=== PATIENT | male | born 1950 | race Caucasian/White ===

== ENCOUNTER 2024-06-14 18:22 | Emergency (ER) | payer MEDICARE, OTHER, SELFPAY ==
[2024-06-14 18:30] VITALS: BP 212/108
[2024-06-14 18:39] VITALS: BP 164/98
[2024-06-14 19:31] VITALS: BP 184/116
--- NOTE | 2024-06-14 19:43 | ED.GENMED ---
History of Present Illness
General
Chief Complaint: Blood Pressure Problem
Source: patient and family (daughter)
Exam Limitations: none
Time Seen by Provider: 06/14/24 19:11
History of Present Illness
History of Present Illness:
This is a 73 year old male that comes in with c/o his BP going up and down. States that this all started when he was lightheaded when he went up the steps. Daughter states that 2 days ago he went up the steps and he was lightheaded and passed out.
States that he had grabbed for the bookcase and it fell on him. Patient states that he was awake before he hit the floor. States that his BP has been uncontrolled. States that at one time it was 90/60 with HR of 49 and then a couple days later it
was 200/1039 with HR of 63. States that he has stopped all of his BP medication. States that he has been SOB and had diarrhea. Denies any fever, chills, chest pain, abd pain, nausea, vomiting, headache, dizziness, urinary burning.
Past History
Past History
ED Past Medical History: Asthma, GERD, HTN, Hypercholesterolemia and Other (Benign prostatic hypertrophy , Renal calculus, Parkinson's, Allergic rhinitis )
ED Past Surgical History: Urological (Lithotripsy) and Other (cataracts. right and left lens implants. Eye lid tuck, Hernia surgery)
Social History
Tobacco: Former smoker (Patient will very intermittently smoke a cigar at a celebratory function)
Alcohol: Occasional
Drug: None
Personal:
Living: with family
Employment: Retired
Review of Systems
Review of Systems
All Other Systems: ROS reviewed and negative except as documented in HPI and ROS
Constitutional: Reports no symptoms; Denies fever or chills
EENT: Reports no symptoms
Respiratory: Reports trouble breathing; Denies cough
Cardiac: Reports no symptoms; Denies chest pain
ABD/GI: Reports diarrhea; Denies abdominal pain, nausea or vomiting
: Reports no symptoms; Denies dysuria, frequency or urgency
Musculoskeletal: Reports no symptoms
Skin: Reports no symptoms
Neurological: Reports no symptoms; Denies dizzy or headache
Psychiatric: Reports no symptoms
Phy Exam
General Physical Exam
General Presentation: no apparent distress
General age: appears stated age
General Skin: warm and dry
General Habitus: elderly
General Mental: alert
General Hydration: appears well hydrated
ENT Exam
ENT Exam: TM's normal, pharynx normal and neck supple
Eye Exam
Eye Exam: EOMI
Cardiovascular Exam
Cardiovascular Exam: regular rate/rhythm, no edema and normal peripheral pulses
Pulmonary Exam
Pulmonary Exam: lungs clear, no respiratory distress, no rales, chest non tender, no crackles, no rhonchi, no wheezing and no cough
Gastrointestinal Exam
Gastrointestinal Exam: normal bowel sounds, non tender, soft, no organomegaly, no pulsatile mass and non distended
Musculoskeletal Exam
Musculoskeletal Exam: full ROM and no edema
Skin Exam
Skin Exam: normal color, warm/dry, no rash and no petechia
Psychiatric Exam
Psychiatric Exam: normal mood/affect
Course
Orders/Labs/Results
Orders:
Orders
06/14/24 18:23
Electrocardiogram (*1) Urgent
Reason for Study: Syncope
EKG- Treatment ONCE
06/14/24 19:48
Amlodipine [Norvasc] 5 mg PO NOW STA
CR Chest - 2 Views Urgent
Comment:
Reason For Exam: SOB
06/14/24 19:56
Complete Blood Count/With Diff Urgent
Comprehensive Metabolic Panel Urgent
Troponin I Urgent
Abnormal Lab Results
06/14/24
19:56
MCH 31.9 H pg
(27.0-31.0)
Monocytes % 10.2 H %
(1.7-9.3)
06/14/24 19:56
06/14/24 19:56
Vital Signs
Initial and Last Documented VS:
Initial Vital Signs
Temp Pulse Resp BP Pulse Ox
97.8 F 78 18 212/108 98
06/14/24 18:30 06/14/24 18:30 06/14/24 18:30 06/14/24 18:30 06/14/24 18:30
Last Documented Vital Signs
Temp Pulse Resp BP Pulse Ox
97.8 F 60 16 176/92 98
06/14/24 18:30 06/14/24 20:23 06/14/24 20:23 06/14/24 21:08 06/14/24 18:30
MDM/Problems Addressed
Differential Diagnosis Includes:
Hypertension,
MDM/Problems Addressed:
This us a 74 year old male that comes in with c/o his BP going up and down. Daughter states that he passed out the other day after going up the steps and he grabbed a bookcase and this fell on top of him. Patient states that he had come around
before he even hit the floor. States that at one time his BP was 90/60 with HR 49. Then a couple days later it was 200/139 with HR 63.
will check labs, chest x-ray, and check BP manually.
Back into see patient and daughter. Explained that his blood work is normal along with the chest-x-ray. Feel that patient needs to be on Medication for his BP. Will place back on Amlodipine 5mg daily. Patient to follow up with the Wind Turbine Technician for
further evaluation and treatment. Will discharge home.
Chronic conditions affecting care: HTN
Acute Exacerbation and/or Progression of Chronic Illness: HTN
*Radiology
Radiology exam reviewed: radiology read reviewed (Chest-Mild scarring in the right lower and middle lobes which appears unchanged. No radiographic evidence for pneumonia, pleural effusion or acute pulmonary edema)
*Pulse Oximetry
Patient hypoxic: no
*EKG
Interpreted by ED Provider?: Yes
Heart Rate: 65
Rate: normal
Rhythm: sinus
Proctor: normal axis
Interval: normal interval
QRS Pattern: normal QRS
Ischemia: no ischemia
*Pipeline Technician Interpretation
Rate: normal
Heart Rate: 79
Rhythm: sinus
*Critical Care Note
Total Time (30-74mins, 75-104mins- exclusive of procedures): Not Applicable
ED Attending Note
-
Portions of this chart may have been created with voice recognition software.� Occasional wrong word or��sound alike� substitutions may have occurred due to the inherent limitations of voice recognition software.
Discharge Plan
Departure
Patient Disposition: Home (Routine Discharge)
Date of Disposition: 06/14/24
Time of Disposition: 21:42
Patient with high blood pressure during this ER visit?: Yes
Condition: Good
Covid-19: Not Applicable
Discharge Problem:
Hypertension
Instructions: High Blood Pressure (DC), BLOOD PRESSURE
Prescriptions:
New
amlodipine 5 mg tablet
5 mg PO DAILY Qty: 30 0RF
No Action
finasteride [Propecia] 1 MG tablet
1 mg PO DAILY
docosahexaenoic acid-epa 1 CAP capsule
1 cap PO DAILY
GLUCOSAMINE HCL/CHONDRO MACEDO A
1 tab PO DAILY
Multivitamin
1 tab PO DAILY
Timolol
1 drp LEFT EYE DAILY
polyethylene glycol 3350 17 GRAMS powder in packet
17 grams PO DAILY Qty: 10 0RF
Rx Instructions:
use if no BM>24h; OTC, no Rx given/needed
tramadol [Ultram] 50 MG tablet
50 mg PO Q6HPRN PRN (Reason: moderate pain) Qty: 20 0RF
Rx Instructions:
can increase to 2 tabs every 6h for severe pain
acetaminophen [Tylenol Extra Strength] 500 MG tablet
1,000 mg PO Q6HPRN PRN (Reason: mild pain) Qty: 10 0RF
Rx Instructions:
OTC, no Rx given/needed
Referrals:
Carlos Marie MD [Family Provider] -
Beka Ayers MD [Active] - Follow up in 2-3 days
Activity Restrictions/Additional Instructions:
As discussed, your blood work is all normal. Your chest x-ray is negative for any acute disease process. You do need to be on medication for your blood pressure. You have had a prescription for the Amlodipine sent to your pharmacy. Please take this
daily. Follow up with the Wind Turbine Technician for further evaluation and make them aware of the syncope and Shortness of breath. Please increase your water intake to 8-8oz glasses daily. PLEASE TAKE YOUR BLOOD PRESSURE CUFF WITH YOU TO THE SOFTWARE CONFIGURATION ENGINEER
OFFICE SO THEY CANE COMPARE READINGS YOU MAY NEED TO GET YOURS RECALIBRATED. IF YOU HAVE ANY OTHER CONCERNS PLEASE RETURN TO THE EMERGENCY ROOM
Interventions
Interventions:
*Risk Screen - Suicide Last Done: 06/14/24 18:30
*General Assessment Last Done: 06/14/24 18:30
*Neglect/Abuse Screening Last Done: 06/14/24 18:30
ED- Fall Risk Assessment Last Done: 06/14/24 19:08
*ED COVID-19 Vaccine History Last Done: 06/14/24 18:30
ED- Cardiac Assessment Last Done: 06/14/24 19:08
ED- Neurological Assessment Last Done: 06/14/24 19:08
ED- Pulmonary Assessment Last Done: 06/14/24 19:08
Discharge Date and Time
Print Language: MONGOLIAN
[2024-06-14 20:04] LABS: % Basophils 0.6 % (0-2); % Eosinophils 2.4 % (0-6); % Immature Granulocytes 0.2 % (0-0.5); % Lymphocytes 24.7 % (20.5-51.1); % Monocytes 10.2 % (1.7-9.3); % Neutrophils 61.9 % (42.2-75.2); Absolute Eosinophils 0.2 10^3/uL (0-0.7); Absolute Lymphocytes 1.5 10^3/uL (1.2-3.4); Absolute Monocytes 0.6 10^3/uL (0.1-0.6); Absolute Neutrophils 3.8 10^3/uL (1.4-6.5); Hematocrit 43.8 % (39.0-52.0); Hemoglobin 15.2 g/dL (13.0-18.0); Mean Corp Hgb Conc. 34.7 g/dL (33.0-37.0); Mean Corpuscular Hgb 31.9 pg (27.0-31.0); Mean Corpuscular Volume 91.8 fL (80.0-94.0); Mean Platelet Volume 8.7 fL (7.4-10.4); Nucleated Red Blood Cells % 0 % (-); Platelet Count 203 10^3/uL (130-400); Red Blood Cell Count 4.77 10^6/uL (4.70-6.10); Red Cell Dist. Width 11.9 % (11.5-14.5); White Blood Cell Count 6.2 10^3/uL (4.8-10.8)
[2024-06-14] MEDS: NORVASC 5 MG PO (20:08)
[2024-06-14 20:12] VITALS: BP 163/95
[2024-06-14 20:18] LABS: ALT (SGPT) < 10 U/L (0-50); AST (SGOT) 21 U/L (17-59); Albumin 4.4 g/dl (3.5-5.0); Alkaline Phosphatase 41 U/L (38-126); Blood Urea Nitrogen 20 mg/dl (9-20); Calcium 9.4 mg/dl (8.4-10.2); Carbon Dioxide 27 mmol/L (22-30); Chloride 104 mmol/L (98-107); Glucose 99 mg/dl (70-99); Potassium 4.5 mmol/L (3.5-5.1); Sodium 142 mmol/L (135-145); Total Bilirubin 0.6 mg/dl (0.2-1.3); Total Protein 7.1 g/dl (6.3-8.2); eGFR > 60.00
[2024-06-14 20:29] LABS: Troponin I < 0.012 ng/ml
[2024-06-14 21:08] VITALS: BP 176/92
== END 2024-06-14 21:54 | disposition home or self-care (01) ==
LOC: EMR 18:22
PROVIDERS: Clinical Nurse Specialist Family Health; EMERGENCY PHYSICIAN Emergency Medicine; FAMILY PHYSICIAN Family Medicine
DX: R55 Syncope and collapse (principal); I10 Essential (primary) hypertension; R19.7 Diarrhea, unspecified; W20.8XXA Other cause of strike by thrown, projected or falling object, initial encounter; E78.00 Pure hypercholesterolemia, unspecified; G20.A1 Parkinson's disease without dyskinesia, without mention of fluctuations; J45.909 Unspecified asthma, uncomplicated; K21.9 Gastro-esophageal reflux disease without esophagitis; N40.0 Benign prostatic hyperplasia without lower urinary tract symptoms; Z87.442 Personal history of urinary calculi; Z87.891 Personal history of nicotine dependence; Z91.048 Other nonmedicinal substance allergy status
CPT/HCPCS: 99283; 71046; 80053; 84484; 85025; 93005

== ENCOUNTER → 2024-06-18 09:23 | Outpatient (REF) | payer MEDICARE, OTHER, SELFPAY | LOC: RCS 09:23 | PROVIDERS: ATTENDING PHYSICIAN Nurse Practitioner; FAMILY PHYSICIAN Family Medicine | DX: R42 Dizziness and giddiness (principal) | CPT/HCPCS: 93225; 93226 ==

== ENCOUNTER 2024-06-24 22:30 | Inpatient (IN) | payer MEDICARE, OTHER, SELFPAY ==
[2024-06-24] VITALS (17 sets, daily range): BP systolic 115–196; BP diastolic 59–176; BMI 27.8
--- NOTE | 2024-06-24 20:03 | ED.GENMED ---
History of Present Illness
General
Chief Complaint: CVA/TIA Symptoms
Source: patient and family
Exam Limitations: clinical condition
Time Seen by Provider: 06/24/24 20:00
Nursing documentation reviewed up to this point in time: agreed with
History of Present Illness
History of Present Illness:
74-year-old male presents emergency department after being found by his in vomit facedown and unresponsive. EMS found him in vomit and lying facedown. He was not responsive but just kept saying no to all questions.
Past History
Past History
ED Past Medical History: Asthma, GERD, HTN, Hypercholesterolemia and Other (Benign prostatic hypertrophy , Renal calculus, Parkinson's, Allergic rhinitis )
ED Past Surgical History: Urological (Lithotripsy) and Other (cataracts. right and left lens implants. Eye lid tuck, Hernia surgery)
Social History
Tobacco: Former smoker (Patient will very intermittently smoke a cigar at a celebratory function)
Alcohol: Occasional
Drug: None
Personal:
Living: with family
Employment: Retired
Review of Systems
Review of Systems
Allergies reviewed?: Yes
Phy Exam
Physical Exam
Physical Exam:
Physical Exam
General: Confused, hypertensive
Neck: supple. no meningeal signs. normal posterior pharynx
Heart: s1/s2 regular rate and rhythm, no murmur. equal radial
pulses.
HEENT: Pupils equal round reactive to light, EOMI
Lungs: no acute respiratory distress. clear bilaterally
Abdomen: normal bowel sounds. not tender. no CVAT
Neuro: alert and oriented to person. Difficulty moving right arm, moving all other extremities
Skin: no rash
Psychiatric: well kept. interactive and cooperative
Extremities: no edema. no calf tenderness. negative homans. good distal pulses
Course
Orders/Labs/Results
Orders:
Orders
06/24/24 20:00
CT HEAD STROKE ALERT W/o Cont Urgent
Comment:
Reason For Exam: altered mental status, right arm weakness
CT HEAD/NECK ANG STROKE ALERT Urgent
Comment:
Reason For Exam: altered mental status, right arm weakness
Bedside Glucose- Treatment ONCE
Cardiac Monitoring- Treatment ONCE
IV Insert/Care/Rem.- Treatment PRN
Pulse Ox/cont/shift [RESP] Stat
Quantity: 1
06/24/24 20:01
Electrocardiogram (*1) Stat
Reason for Study: Other
Other Reason for Exam: neuro symptoms
EKG- Treatment ONCE
06/24/24 20:09
Complete Blood Count/With Diff Urgent
Comprehensive Metabolic Panel Urgent
PTT Urgent
Prothrombin Time Urgent
Troponin I Urgent
06/24/24 20:23
CT Chest Pe Study Urgent
Comment:
Reason For Exam: bilateral pe seen on cta head neck, altered
06/24/24 20:55
Heparin 8,100 units IV NOW STA
Pharmacy Request to Place See Dose Instructions PO NOW STA
Discontinue all Active Warfarin orders?: Yes
Nursing to Place Non Medication Order As Directed
Physician Order: PTT 6 hours after initial start of Heparin infusion
06/24/24 21:00
Heparin INFUSION titrate rate - CONTINUOUS Heparin 48983 Units/250 ml 25,000 units in 250 ml IV PER PROTOCOL
Weight to be used for heparin protocol in kilograms (kg):: 100.9
Protocol:: DVT/PE
PTT Goal Range to be used:: PTT 73 to 111 seconds
Order type:: Initial
INITIAL Infusion Dose (UNITS/KG/hr) & then follow protocol:: 18 units/kg/hr
Infusion Dose in UNITS/hr & then follow protocol (UNITS/hr):: 1,800
INFUSION RATE in mL/hr & then follow protocol (mL/hr):: 18
For DVT/PE algorithm, re-bolus for low PTT?: Yes
PTT less than or equal to 64 seconds:: Re-bolus 80 units/kg (max 10,000units). Increase by 400 units/hr
(+ 4mL/hr)
PTT 64.1 to 72.9 seconds:: Re-bolus 40 units/kg (max 5,000 units). Increase by 200 units/hr
(+ 2mL/hr)
PTT 73 to 111 seconds:: Target Range. No change in rate.
PTT 111.1 to 130.9 seconds:: Decrease rate by 200 units/hr (- 2 mL/hr)
PTT 131 to 199.9 seconds:: HOLD for 1 hr. Then decrease by 300 units/hr (- 3mL/hr)
PTT greater than or equal to 200 seconds:: HOLD for 2 hrs & Notify Provider. Then decrease by 400 units/hr
(- 4mL/hr)
Lab follow-up:: Each change, PTT q6h until 2 consecutive are therapeutic. Then
PTT daily.
Pharmacy Request to Place See Dose Instructions IV DIRECTED
Abnormal Lab Results
06/24/24
20:09
MCH 31.7 H pg
(27.0-31.0)
Absolute Monos (auto) 0.7 H 10^3/uL
(0.1-0.6)
Glucose 207 H mg/dl
(70-99)
06/24/24 20:09
06/24/24 20:09
Vital Signs
Initial and Last Documented VS:
Initial Vital Signs
Pulse Resp
111 19
06/24/24 19:59 06/24/24 19:59
Last Documented Vital Signs
Pulse Resp BP Pulse Ox
118 24 178/108 89
06/24/24 20:45 06/24/24 20:45 06/24/24 20:45 06/24/24 20:01
MDM/Problems Addressed
Differential Diagnosis Includes:
CVA, PE
MDM/Problems Addressed:
74-year-old male with altered mental status, bilateral PE and saddle embolus. No acute findings on CT angiography head and neck. Patient moving all extremities. Doubt CVA. Suspect symptoms related to PE.
Chronic conditions affecting care: HTN
Acute Exacerbation and/or Progression of Chronic Illness: HTN
*Radiology
Radiology exam reviewed: radiology read reviewed (CT head no acute findings, CTA head and neck no acute findings, CT angiography chest shows saddle embolus, bilateral pulmonary embolism)
*Pulse Oximetry
Patient hypoxic: no
*EKG
Interpreted by ED Provider?: Yes
EKG Intrepretation Date: 06/24/24
EKG Intrepretation Time: 20:44
Interpretation: abnormal
Comparison EKG: changes noted
Heart Rate: 119
Rate: tachycardiac
Rhythm: sinus tachycardia
[place]enn: normal axis
Interval: normal interval
QRS Pattern: normal QRS
Ischemia: non-specific ST changes
*Flight Control Specialist Interpretation
Rate: tachycardiac
Interpretation: abnormal
Heart Rate: 120
Rhythm: sinus tachycardia
*Critical Care Note
Total Time (30-74mins, 75-104mins- exclusive of procedures): 45
comment:
Critical care statement: A total of 45 minutes of critical care time was provided for this patient. This includes management of unstable vital signs, evaluation of the patient at bedside, reviewing the patient's pertinent medical records, discussion
with consultants, review of old EKGs and review of pertinent medical records. This time with separate from time utilized to perform the aforementioned documented procedures
Patient Management
Social determinants of health affecting care: Living situation
Discussion with other providers: Hospitalist and Clothing Patternmaker (Interventional radiology)
Escalation/DeEscalation of care consider admission/obs:
Admit indicated to ICU
ED Attending Note
-
Portions of this chart may have been created with voice recognition software.� Occasional wrong word or��sound alike� substitutions may have occurred due to the inherent limitations of voice recognition software.
Discharge Plan
Departure
Patient Disposition: Admit
Date of Disposition: 06/24/24
Time of Disposition: 20:47
Admit to: ICU
Presentation/result/management discussed w/ accepting MD/DO: Hospitalist
Patient with high blood pressure during this ER visit?: Yes
Condition: Serious
Discharge Problem:
Acute saddle pulmonary embolism
Prescriptions:
No Action
finasteride [Propecia] 1 MG tablet
1 mg PO DAILY
docosahexaenoic acid-epa 1 CAP capsule
1 cap PO DAILY
GLUCOSAMINE HCL/CHONDRO MACEDO A
1 tab PO DAILY
Multivitamin
1 tab PO DAILY
Timolol
1 drp LEFT EYE DAILY
polyethylene glycol 3350 17 GRAMS powder in packet
17 grams PO DAILY Qty: 10 0RF
Rx Instructions:
use if no BM>24h; OTC, no Rx given/needed
tramadol [Ultram] 50 MG tablet
50 mg PO Q6HPRN PRN (Reason: moderate pain) Qty: 20 0RF
Rx Instructions:
can increase to 2 tabs every 6h for severe pain
acetaminophen [Tylenol Extra Strength] 500 MG tablet
1,000 mg PO Q6HPRN PRN (Reason: mild pain) Qty: 10 0RF
Rx Instructions:
OTC, no Rx given/needed
amlodipine 5 mg tablet
5 mg PO DAILY Qty: 30 0RF
Discharge Date and Time
Print Language: ITALIAN
[2024-06-24 20:16] LABS: % Basophils 0.6 % (0-2); % Eosinophils 2.6 % (0-6); % Immature Granulocytes 0.3 % (0-0.5); % Lymphocytes 32.2 % (20.5-51.1); % Monocytes 7.6 % (1.7-9.3); % Neutrophils 56.7 % (42.2-75.2); Absolute Basophils 0.1 10^3/uL (0-0.2); Absolute Eosinophils 0.2 10^3/uL (0-0.7); Absolute Lymphocytes 2.8 10^3/uL (1.2-3.4); Absolute Monocytes 0.7 10^3/uL (0.1-0.6); Absolute Neutrophils 4.9 10^3/uL (1.4-6.5); Hematocrit 44.9 % (39.0-52.0); Hemoglobin 15.7 g/dL (13.0-18.0); Mean Corpuscular Hgb 31.7 pg (27.0-31.0); Mean Corpuscular Volume 90.7 fL (80.0-94.0); Mean Platelet Volume 8.9 fL (7.4-10.4); Nucleated Red Blood Cells % 0 % (-); Platelet Count 207 10^3/uL (130-400); Red Blood Cell Count 4.95 10^6/uL (4.70-6.10); Red Cell Dist. Width 11.9 % (11.5-14.5); White Blood Cell Count 8.7 10^3/uL (4.8-10.8)
[2024-06-24 20:30] LABS: ALT (SGPT) 17 U/L (0-50); AST (SGOT) 36 U/L (17-59); Albumin 4.7 g/dl (3.5-5.0); Alkaline Phosphatase 47 U/L (38-126); Blood Urea Nitrogen 19 mg/dl (9-20); Calcium 9.4 mg/dl (8.4-10.2); Carbon Dioxide 25 mmol/L (22-30); Chloride 101 mmol/L (98-107); Glucose 207 mg/dl (70-99); Potassium 4.5 mmol/L (3.5-5.1); Sodium 142 mmol/L (135-145); Total Bilirubin 0.6 mg/dl (0.2-1.3); Total Protein 7.7 g/dl (6.3-8.2); eGFR > 60.00
[2024-06-24 20:31] LABS: APTT 27.3 Sec (23.4-35.0); INR 1.04; PT 13.6 Sec (11.4-14.6)
[2024-06-24 20:41] LABS: Troponin I 0.032 ng/ml
[2024-06-24 21:12] LABS: Glucose - Point of Care 163 mg/dl (70-99)
[2024-06-24] MEDS: HEPARIN 8100 UNITS IV (21:34)
--- NOTE | 2024-06-24 21:36 | HPS.HSE ---
Family Physician
-
Family Physician: NOT KNOW UNKNOWN - PT DOES
Chief Complaint
-
Altered mental status, fall
History of Present Illness
This is a 74-year-old male patient with past medical history of hypertension, hyperlipidemia, Parkinson's disease who presents to the emergency department via EMS following being found down by spouse at home.
Per family patient has been having approximately 3 weeks of worsening lightheadedness with episodes of syncope 2 weeks ago. He has had lightheadedness for several weeks prior to that and he has been investigated with Holter monitoring EKG by
cardiology that were negative. He had a second Holter more recently which was also negative. The patient has been titrated off of beta-vick which was causing bradycardia at 1 point. 2 weeks ago he started complaining of dyspnea on exertion and
shortness of breath at rest. He had no chest pain. He had no lower extremity swelling calf tenderness or pain orthopnea or PND. He had no cough fevers or chills. He continues to complain of lightheadedness that is worse with getting up. He was
seen in the ED about 2 weeks ago with uncontrolled hypertension and was placed on amlodipine. Despite this the patient continued to complain of lightheadedness. Today he had a second episode of a syncopal event. He apparently went upstairs and
his home complained of lightheadedness and then was found down few minutes later gurgling. He was breathing but was not responsive to the . EMS was called patient was brought to the emergency department and a stroke code.
In the ED she was afebrile, was hypertensive to 178/110 and pulse was 98 and was 79%. Initial troponin was negative. ECG shows sinus tachycardia at rate of [address] or T wave changes. He CT head and CT angio was negative for acute
stroke, bleed, focal stenosis but was concerning for a possible pulmonary emboli. A CT PE was performed which showed bilateral moderate volume PE as well as a small saddle embolus. No RV strain noted.
Case discussed with interventional radiology. No occlusion patient does not need immediate interventional procedure.
Medical History
Past Medical History
Past Medical History: Reports Asthma, GERD, HTN, Hypercholesterolemia and Hypothyroidism
Additional Past Medical History:
Parkinson disease
BPH
Nephhrolithiasis
Past Surgical History: Reports Urological (Lithotripsy) and Other
Additional Past Surgical History:
Left eyelid surgery
Social History
Tobacco: Non-smoker
Alcohol: Former
Drug: None
Personal:
Living: With Family
Employment: Retired
Family History
Family History: Not pertinent
Allergies / Home Medications
Allergies reflects when Allergies were last updated in [employer].
Home Medications with original date entered in [employer]
Allergy/Medication List:
Allergies
Allergy/AdvReac Type Severity Reaction Status Date / Time
cat dander Allergy sneezing Verified 08/22/17 06:55
environmental Allergy congestion Uncoded 08/22/17 06:55
tree pollen Allergy watery Uncoded 08/22/17 06:55
eyes and
runny nose
Home Medications
Lactobac no.2-Bifidobac no.1-S. thermo 112.5 billion cell capsule (Visbiome) 1 cap PO DAILY 06/24/24
Liver Renew 1 cap PO DAILY 06/24/24
Neugenix Pm 1 cap PO HS 06/24/24
Ultra Prostate Formula 1 cap PO DAILY 06/24/24
amlodipine 10 mg tablet 10 mg PO DAILY 06/24/24
azelastine 137 mcg (0.1 %) nasal spray 1 spray intranasal DAILY 06/24/24
carbidopa 25 mg-levodopa 100 mg tablet 1.5 tab PO TID 06/24/24
cetirizine 10 mg tablet (Zyrtec) 10 mg PO DAILY 06/24/24
coenzyme Q10 100 mg capsule (CoQ-10) 100 mg PO DAILY 06/24/24
donepezil 10 mg tablet 10 mg PO HS 06/24/24
glucosamine sulf dipot chlr,msm,chond 550 mg-C 30 mg-ailyn 1 mg capsule (Glucosamine Chondroitin) 1 cap PO DAILY 06/24/24
latanoprost (PF) 0.005 % eye drops in a dropperette 1 drp BOTH EYES HS 06/24/24
levothyroxine 50 mcg tablet 50 mcg PO DAILY 06/24/24
magnesium L-threonate 48 mg magnesium (667 mg) capsule 48 mg PO DAILY 06/24/24
omega-3 fatty acids-fish oil 684 mg-1,200 mg capsule,delayed release 1 cap PO DAILY 06/24/24
ropinirole 6 mg tablet,extended release 24 hr 6 mg PO HS 06/24/24
simvastatin 20 mg tablet 20 mg PO HS 06/24/24
tolterodine 2 mg tablet 2 mg PO BID 06/24/24
trihexyphenidyl 2 mg tablet mg PO 06/24/24
Review of Systems
-
History Source: Family
Constitutional: Reports No Symptoms
EENT: Reports No Symptoms
Respiratory: Reports Trouble Breathing
Cardiac: Reports No Symptoms
Abdomen/GI: Reports No Symptoms
: Reports No Symptoms
Musculoskeletal: Reports No Symptoms
Skin: Reports No Symptoms
Neurological: Reports Weakness
Endocrine: Reports No Symptoms
Hematologic/Lymphatic: Reports No Symptoms
Psych: Reports No Symptoms
Physical Exam
Vital Signs
Vital Signs
Temp Pulse Resp BP Pulse Ox
97.7 F 112 23 151/90 91
06/24/24 19:56 06/24/24 21:15 06/24/24 21:15 06/24/24 21:00 06/24/24 21:15
Physical Exam
General: Appears Chronically Ill
HEENT: NormoCephalic, Anicteric, Moist mucous membranes, PERRLA, [place] Conjunctivae and Oxygen
Respiratory: Clear
Cardiac: S1/S2 and Regular Rhythm
Breast: Deferred by me
GI: Soft, Non Tender, Non Distended and Normal Bowel Sounds
Rectal: Deferred by Provider
Genito-urinary: Deferred by me
Musculoskeletal: No Clubbing, No Cyanosis and No Edema
Skin: Warm
Neuro: Awake, Oriented (oriented x 2), Nonfocal/grossly intact, DTR's Intact & Symmetrical and Tremors
Hematologic/Lymphatic: No Lymphadenopathy
Psych: Anxious
Laboratory Results
-
06/24/24 20:09
06/24/24 20:09
Laboratory Results
PT 13.6 Sec (11.4-14.6) 06/24/24 20:09
INR 1.04 06/24/24 20:09
APTT 27.3 Sec (23.4-35.0) 06/24/24 20:09
Total Bilirubin 0.6 mg/dl (0.2-1.3) 06/24/24 20:09
AST 36 U/L (17-59) 06/24/24 20:09
ALT 17 U/L (0-50) 06/24/24 20:09
Alkaline Phosphatase 47 U/L (38-126) 06/24/24 20:09
Troponin I 0.032 ng/ml 06/24/24 20:09
Data Reviewed
-
CT Scan: Report Reviewed by me
Medical Tests (Nuc Med, Echo, EKG etc): Image Personally Visualized and interpreted
Lab Data: Labs Reviewed by me
Old Records: Reviewed
Impression/Plan
-
IMPRESSION:
74-year-old male with past medical history of Parkinson's disease, hyperlipidemia and uncontrolled hypertension who was recently been suffering from worsening episodes of lightheadedness status post negative EKG and Holter monitoring and has also
had 2 episodes of syncope at home presents with a presyncopal episode without loss of pulse or breathing brought to the emergency department and a stroke alert and ultimately found to have a saddle emboli without evidence of acute stroke on the CT
scan. He is neurologically intact at this time but still appears confused.
PLAN:
1. PE -bilateral pulmonary emboli, small saddle embolus, hemodynamically stable, 2 L oxygen requirement, no RV strain, troponin is negative.
- admit to telemetry
-Discussed with interventional radiology, no immediate intervention envisioned at this time.
-Given recent fall, saddle emboli and syncopal episode we will start patient on heparin drip and monitor at this time
-Trend troponin
- O2 to maintain sat > 93
- Dopplers of miles LE
-Patient with Parkinson's but not immobile no recent travels or hospitalizations and no risk factors for venous thromboembolism, consider outpatient hypercoagulable workup and routine malignancy screening
2. HTN - Poorly controlled, perhaps autonomic instability in setting of neurodegenerative disease.
- labetolol iv prn
- continue amlodipine for now
3. Confusion - Suspect secondary to recent syncope, possibly hypoxia. No seizures.
- neurochecks q 6
- monitor for seizures
- incontinent, check u/a, b12, tsh
- night terrors, holding donepezil, holding trihexyphenidyl
4. HLD
- continue statin
5. Parkinson -recent diagnosis poor follow-up with outpatient neuro
-continue ropinirole and carbidopa for now.
Code Status - Full Code
[2024-06-24] MEDS: HEPARIN 25000 UNITS/250 ML IV (22:23)
[2024-06-25] VITALS (7 sets, daily range): BP systolic 104–155; BP diastolic 65–93
--- NOTE | 2024-06-25 01:10 | PTCARENOTE ---
Pt arrived to room 436-01. Pt ambulated from stretcher to bed with x1 assistance. Pt AAOx1, disoriented to place and time, VSS. Pt on 2LO2. Pt oriented to room, call gandara placed within reach.
--- NOTE | 2024-06-25 01:45 | PTCARENOTE ---
Pt critical Troponin reported from lab. BP 155/93. Pt reports no pain/ SOB. DOOR CLAMP OPERATOR Ana Christie made aware. EKG done, cardio consult ordered. No further orders.
--- NOTE | 2024-06-25 02:19 | W.PN.UPDATE ---
Update Note
Progress Note Update
Troponin elevated 0.032--> 2.130. Patient asymptomatic, stable [place] 0040 155/93, HR 101, afebrile, 96%. EKG done, showed sinus tachycardia, right bundle branch block. Heparin drip maintained. PTT pending. Dr. Saenz made aware.
[2024-06-25] MEDS: XALATAN OPHTHALMIC SOLUTION BOTH EYES (02:20)
[2024-06-25] MEDS: SINEMET 25-100 1.5 TABLET PO ×4 (02:25→21:43)
[2024-06-25] MEDS: LIPITOR 10 MG PO ×2 (02:25→21:43)
[2024-06-25 04:47] LABS: INR 1.16; PT 14.8 Sec (11.4-14.6)
[2024-06-25 04:55] LABS: APTT 166.5 Sec (23.4-35.0)
[2024-06-25] MEDS: SYNTHROID 50 MCG PO (06:21)
[2024-06-25 07:40] LABS: TSH 1.11 uIU/ml (0.47-4.68)
[2024-06-25 07:59] LABS: Vitamin B12 308 pg/ml (239-931)
--- NOTE | 2024-06-25 08:44 | CARDSERVLU ---
Echocardiogram with [facility] completed after protocol screening completed. Allergies verified.
Patent IV site: _Right wrist site clear____
IV site flushed with 0.9% NaCl pre and post administration.
Diluted bolus method utilized to enhance visualization of ventricular milner.
Total volume given: __4__ mL
Patient tolerated all procedures well without complications.
--- NOTE | 2024-06-25 09:02 | CON.CAR ---
Addendum entered and electronically signed by Jason Yadav MD 06/25/24 12:23:
74 yo male with PMH of Wenckebach, Parkinson's, HTN, orthostatic hypotension presented to ED with dizziness and syncope. Found to have moderate volume pulmonary embolism with central saddle component. We are consulted for abnormal troponin. He has
no chest pain. Exam with RRR, no murmurs, no edema. EKG: ST, iRBBB. Echo: LVEF 55-60%, RV dilation/dysfunction with moderate TR and moderate pulm HTN.
Discussed with team. Considered sub-massive. Plan is IV heparin drip today.
Troponin elevation is acute non-ischemic myocardial injury in setting of PE and right heart strain.
Original Note:
Consultation
Consultation Request
Date/Time Consultation Requested: 06/25/24 2:15a
Date/Time Consultation Performed: 06/25/24 8:45a
Requesting Provider: Dr. Block
Performing Provider: MOMO Dotson for Dr. Yadav
Reason for Consultation: abnormal troponin
Medical History
-
Chief Complaint: lightheadedness/found unresponsive
History of Present Illness:
Mr. Wylie is a 74-year-old male with Parkinson's, Wenckebach second-degree AV block, dyslipidemia, hypertension, BPH and orthostatic hypotension, who presents to the ER via EMS after being found down and unresponsive by his at home. In the ER
he was hypertensive 178/110, pulse 98 and O2 sat 79%, head CT negative for acute abnormality, CT PE showed bilateral moderate volume pulmonary embolism including small central saddle type pulmonary embolism. He is admitted to the hospitalist
service and was initiated on IV heparin. In the setting of acute PE, his initial troponin was 0.032 then 2.130 then 2.860. Therefore we are consulted for an abnormal troponin. He denies any chest pain or shortness of breath currently.
As an outpatient he was seen in our office 06/15/2024 with complaints of lightheadedness with a syncopal episode on 06/12/2024, feeling lightheaded while walking up the steps at home he then noted elevated blood pressures at home but states was awake
as he fell to the floor and his blood pressure was 90/60 heart rate in the 50s, he did not go to the ER after that event. As high as 200/100 with a heart rate in the 60s. He was seen in the ER 06/14/2024 for elevated blood pressure and he was
initiated on amlodipine 5 mg daily. A prior Holter monitor in June 2023 showed normal sinus rhythm without arrhythmia or pauses and echo July 2023 with normal biventricular size and function without regional wall motion abnormality, mild MR
and TR. An additional monitor was ordered 06/15/2024 and completed on 06/18/2024 that was unremarkable for arrhythmia or pauses.
Past Medical History
Past Medical History: Other (as above)
Past Surgical History: Other (cataracts, inguinal hernia repair, b/l eyelid lift 2023)
Social History
Tobacco: Former Smoker
Alcohol: None
Personal:
Living: With Family
Employment: Retired
Family History
Family History: Reviewed & Not Pertinent
Allergies / Home Medications
Allergy/AdvReac Type Severity Reaction Status Date / Time
cat dander Allergy sneezing Verified 08/22/17 06:55
environmental Allergy congestion Uncoded 08/22/17 06:55
tree pollen Allergy watery Uncoded 08/22/17 06:55
eyes and
runny nose
�Medication �Instructions �Recorded �Confirmed �Type
Lactobac no.2-Bifidobac no.1-S. 1 cap PO DAILY 06/24/24 06/24/24 History
thermo 112.5 billion cell capsule
(Visbiome)
Liver Renew 1 cap PO DAILY 06/24/24 06/24/24 History
Neugenix Pm 1 cap PO HS 06/24/24 06/24/24 History
Ultra Prostate Formula 1 cap PO DAILY 06/24/24 06/24/24 History
amlodipine 10 mg tablet 10 mg PO DAILY 06/24/24 06/24/24 History
azelastine 137 mcg (0.1 %) nasal 1 spray intranasal DAILY 06/24/24 06/24/24 History
spray
carbidopa 25 mg-levodopa 100 mg 1.5 tab PO TID 06/24/24 06/24/24 History
tablet
cetirizine 10 mg tablet (Zyrtec) 10 mg PO DAILY 06/24/24 06/24/24 History
coenzyme Q10 100 mg capsule 100 mg PO DAILY 06/24/24 06/24/24 History
(CoQ-10)
donepezil 10 mg tablet 10 mg PO HS 06/24/24 06/24/24 History
glucosamine sulf dipot 1 cap PO DAILY 06/24/24 06/24/24 History
chlr,msm,chond 550 mg-C 30 mg-ailyn
1 mg capsule (Glucosamine
Chondroitin)
latanoprost (PF) 0.005 % eye drops 1 drp BOTH EYES HS 06/24/24 06/24/24 History
in a dropperette
levothyroxine 50 mcg tablet 50 mcg PO DAILY 06/24/24 06/24/24 History
magnesium L-threonate 48 mg 48 mg PO DAILY 06/24/24 06/24/24 History
magnesium (667 mg) capsule
omega-3 fatty acids-fish oil 684 1 cap PO DAILY 06/24/24 06/24/24 History
mg-1,200 mg capsule,delayed release
ropinirole 6 mg tablet,extended 6 mg PO HS 06/24/24 06/24/24 History
release 24 hr
simvastatin 20 mg tablet 20 mg PO HS 06/24/24 06/24/24 History
tolterodine 2 mg tablet 2 mg PO BID 06/24/24 06/24/24 History
trihexyphenidyl 2 mg tablet mg PO 06/24/24 History
Review of Systems
-
History Source: Patient
All other systems: Negative unless noted
Physical Exam
Vital Signs
Temp Pulse Resp BP Pulse Ox
97.9 F 98 16 137/85 99
06/25/24 07:30 06/25/24 07:30 06/25/24 07:30 06/25/24 07:30 06/25/24 07:30
Lab Results
06/24/24 20:09
06/24/24 20:09
Troponin I 2.860 ng/ml H* D 06/25/24 06:31
Physical Exam
General: Well Developed, Well Nourished and No Apparent Distress
HEENT: Normocephalic, Anicteric and Moist Mucous Membranes
Respiratory: Clear and Non Labored Respirations
Cardiac: S1/S2 and Regular Rhythm
Breast: Deferred by me
GI: Soft, Non Distended and Normal Bowel Sounds
Rectal: Deferred by Provider
Genito-urinary: No Costovertebral Tender
Musculoskeletal: No Clubbing, No Cyanosis and No Edema
Skin: Warm and Dry
Neuro: AO x 3
Hematologic/Lymphatic: No Lymphadenopathy
Psych: Calm
Impression / Plan
-
Non ischemic myocardial injury - acute.
- in the setting of acute PE with RV strain on echo.
- trend troponin to peak (0.032, 2.130, 2.860).
- denies any chest pain or SOB.
- echo done this am, shows RV strain, moderate PHTN, with normal LVEF.
PE - acute.
- now on IV Heparin.
- pulmonary to manage.
Lightheadedness - ongoing for weeks.
- orthostatic hypotension history.
- Parkinson's also contributing.
- monitor tele or arrhythmia, check orthostatic vitals.
- syncope has occurred recently as well.
- history of Wenckebach.
HTN - stable.
- takes Amlodipine 5mg at home.
- also has low BP at home.
- monitor BP closely with h/o orthostatic hypotension.
Parkinson's - chronic.
- continue meds.
BPH - stable on Proscar, continue.
Data Reviewed
-
EKG: Tracing Personally Visualized and interpreted (sinus tachycardia 115 bpm, iRBBB)
CT Scan: Report Reviewed by me (chest: bilateral moderate volume pulmonary embolism including small central saddle type pulmonary embolism) and Other (head CT: no acute abnormalities)
Labs: Labs Reviewed by me
Old Records: Reviewed
[2024-06-25] MEDS: PROTONIX 40 MG PO (09:16)
[2024-06-25] MEDS: NORVASC 10 MG PO (09:17)
[2024-06-25] MEDS: ZYRTEC 10 MG PO (09:18)
--- NOTE | 2024-06-25 09:28 | W.PN.HOSP.TC ---
Today's Communication/Plan
-
trop trend
hep gtt
2d echo
npo
cards
pulm
ir consult
Assessment / Plan
Assessment / Plan
NAD, resting comfortably in bed
Scleral anicteric
Moist mucous membranes
No JVD
CTA bilateral
Normal S1-S2 no murmurs
Soft nontender nondistended bowel sounds active
No peripheral pitting edema
Moves extremities spontaneously, resting tremor
AAOx3
Acute PE, unprovoked, on hep gtt, pesi 113
-need anticoag for at least 6 months if not indefinitely
-2d echo ordered
-pulm and id consult for ?thrombectomy
-hep gtt
-follow protocol for PE
-npo
-need outpatient hem follow up for hypercoag work up/malignancy work up.
nstemi, ?out of portion of PE, possibly cad
-2d echo
-trend trop till peak
-cards consult
-monitor on tele
-repeat ekg if continues to increase
-npo
tachycardia
-physiologic in the setting of acute PE
hyperglycemia
-check a1c
-currently npo
-will order accucheck
-will hold off on starting insulin
htn
-continue antihyerptensive
-would not be aggressive with bp at this time as he is preload dependent
hypothyroidism
-continue levothroxine
hld
-continue statin
Anticipated Discharge: 24 - 48 hours
Subjective/Interval History
-
Date of Service: June 25, 2024
seen and examined
no new complaints
no further episodes of feeling like he is going to pass out
just returned from echo
Objective Data
-
Labs:
Laboratory Results
06/25/24 06/25/24
04:30 11:15
PT 14.8 H
INR 1.16
APTT 166.5 H* Pending
Vital Signs:
Vital Signs
Temp Pulse Resp BP Pulse Ox
97.9 F 98 16 137/85 99
06/25/24 07:30 06/25/24 07:30 06/25/24 07:30 06/25/24 07:30 06/25/24 07:30
I&O
06/24/24 06/25/24 06/26/24
06:59 06:59 06:59
Intake Total 420 / 420
Balance 420 / 420
[2024-06-25 09:47] LABS: Urine Albumin Negative (Neg - Trace); Urine Bilirubin Negative (Negative); Urine Character Clear (Clear); Urine Color Yellow; Urine Glucose Negative (Negative); Urine Ketone Negative (Negative); Urine Leukocyte Negative (Negative); Urine Nitrite Negative (Negative); Urine Occult Blood 1+ (Negative); Urine Urobilinogen Negative (Neg - 1+)
--- NOTE | 2024-06-25 10:04 | CON.PUL ---
Consultation
Consultation Request
Date/Time Consultation Requested: 06/25/2024
Date/Time Consultation Performed: 06/25/2024
Requesting Provider: Dr. Barrow
Performing Provider: Dr. Stone Leroy
Reason for Consultation: submassive pulmonary embolism
Medical History
-
History of Present Illness:
74-year-old male with history of Parkinson disease, second-degree AV block, dyslipidemia, hypertension, BPH, orthostatic hypotension who presented to the emergency room after being found unresponsive by his at home. He was found to be
hypertensive in the emergency room hypoxic with pulse ox down to 79%.
Evaluation including a CT angiogram of the chest that demonstrated moderate volume pulmonary embolism with central saddle component. Started immediately on a heparin drip. Noted this morning to have increased troponins.
EKG with incomplete RBBB.
Preliminary report of echocardiogram showed RV strain with mild RV dilatation which is new compared to his last echocardiogram from last year.
He was being worked up for possible arrhythmias. Holter monitor did not show any pauses recently.
Currently at rest he is asymptomatic.
Not hypotensive or tachycardic
On low rate supplemental oxygen.
There is no history of prior pulmonary embolism.
Past Medical History
Past Medical History: Other (See assessment and plan findings)
Social History
Tobacco: Former Smoker
Alcohol: None
Drug: None
Personal:
Employment: Retired
Family History
Family History: Reviewed & Not Pertinent
Allergies / Home Medications
Allergies
Allergy/AdvReac Type Severity Reaction Status Date / Time
cat dander Allergy sneezing Verified 08/22/17 06:55
environmental Allergy congestion Uncoded 08/22/17 06:55
tree pollen Allergy watery Uncoded 08/22/17 06:55
eyes and
runny nose
Home Medications
�Medication �Instructions �Recorded �Confirmed �Last Taken �Type
Lactobac no.2-Bifidobac no.1-S. 1 cap PO DAILY 06/24/24 06/24/24 Unknown History
thermo 112.5 billion cell capsule
(Visbiome)
Liver Renew 1 cap PO DAILY 06/24/24 06/24/24 Unknown History
Neugenix Pm 1 cap PO HS 06/24/24 06/24/24 Unknown History
Ultra Prostate Formula 1 cap PO DAILY 06/24/24 06/24/24 Unknown History
amlodipine 10 mg tablet 10 mg PO DAILY Blood Pressure 06/24/24 06/24/24 Unknown History
azelastine 137 mcg (0.1 %) nasal 1 spray intranasal DAILY 06/24/24 06/24/24 Unknown History
spray Lung/Breathing Issues
carbidopa 25 mg-levodopa 100 mg 1.5 tab PO TID Neurological 06/24/24 06/24/24 Unknown History
tablet Condition
cetirizine 10 mg tablet (Zyrtec) 10 mg PO DAILY Allergies 06/24/24 06/24/24 Unknown History
coenzyme Q10 100 mg capsule 100 mg PO DAILY 06/24/24 06/24/24 Unknown History
(CoQ-10)
donepezil 10 mg tablet 10 mg PO HS Neurological Condition 06/24/24 06/24/24 Unknown History
glucosamine sulf dipot 1 cap PO DAILY 06/24/24 06/24/24 Unknown History
chlr,msm,chond 550 mg-C 30 mg-ailyn
1 mg capsule (Glucosamine
Chondroitin)
latanoprost (PF) 0.005 % eye drops 1 drp BOTH EYES HS Eye Condition 06/24/24 06/24/24 Unknown History
in a dropperette
levothyroxine 50 mcg tablet 50 mcg PO DAILY Thyroid 06/24/24 06/24/24 Unknown History
magnesium L-threonate 48 mg 48 mg PO DAILY 06/24/24 06/24/24 Unknown History
magnesium (667 mg) capsule
omega-3 fatty acids-fish oil 684 1 cap PO DAILY 06/24/24 06/24/24 Unknown History
mg-1,200 mg capsule,delayed release
ropinirole 6 mg tablet,extended 6 mg PO HS Neurological Condition 06/24/24 06/24/24 Unknown History
release 24 hr
simvastatin 20 mg tablet 20 mg PO HS High Cholesterol 06/24/24 06/24/24 Unknown History
tolterodine 2 mg tablet 2 mg PO BID Urinary Issue 06/24/24 06/24/24 Unknown History
trihexyphenidyl 2 mg tablet mg PO 06/24/24 Unknown History
Review of Systems
-
History Source: Patient
All other systems: Negative unless noted
Vitals / Labs / Diagnostic Testing
Vital Signs
Temp Pulse Resp BP Pulse Ox
97.9 F 98 16 137/85 99
06/25/24 07:30 06/25/24 07:30 06/25/24 07:30 06/25/24 07:30 06/25/24 07:30
Lab Data
06/24/24 20:09
06/24/24 20:09
Laboratory Results
06/24/24 06/25/24
20:09 04:30
PT 13.6 14.8 H
INR 1.04 1.16
APTT 27.3 166.5 H*
Diagnostic Testing:
Physical Exam
-
HEENT: Normocephalic
Cardiovascular: S1/S2
Respiratory: Clear and Non-Labored Respirations
GI: Soft and Non Distended
Neurology: Awake, Alert, AO x 3 and No Motor Deficits
Skin: Warm
General: Comfortable
Assessment
-
74-year-old man with past medical history noted, admitted to the hospital after found unresponsive. Found to be mildly hypoxemic in the emergency room, hypertensive. Evaluation including a CT angiogram of the chest demonstrated moderate clot
burden pulmonary embolism. Developed positive troponins. We were consulted for evaluation of this.
Acute submassive pulmonary embolism-presented with syncopal episode. Initial symptoms started about 2 weeks ago.
Mild hypoxemic respiratory insufficiency 2 L nasal cannula
Positive troponins
Echocardiogram: Preliminary per cardiology note showed moderate pulmonary hypertension/RV strain. Normal LVEF. Official report pending.
History of lightheadedness
Conditions present prior admission:
Hypertension
Parkinson disease
BPH
History of lightheadedness ongoing evaluation in the outpatient setting
History of Wenckebach-Holter monitor recently without pauses.
Assessment and plan:
Acute blood loss from acute pulmonary embolism with saddle component. New RV dysfunction on echocardiogram.
Suspect acute component occurred about 2 weeks ago when he noted more of his chronic symptoms including shortness of breath and lightheadedness.
Patient reports being mainly sedentary, working on his computer. Denies leg edema.
-
PESI score 113-intermediate to high risk.
Increased troponins.
Syncopal episode.
Mild hypoxemia-1L
Mild sinus tachycardia.
Patient able to speak in full sentences, asymptomatic at rest. No JVD present on exam.
Intermediate to high risk pulmonary embolism. Submassive. Patient is not hypotensive. Not requiring increased amount of oxygen.
For now continue heparin drip. Follow PTT. Will continue full anticoagulation with IV heparin for at least 48 to 72 hours.
I personally discussed with patient and risk and benefit of thrombolysis, patient is in my opinion borderline at 74 years old with history of Parkinson disease for risk of intracranial bleed.
I tried to call his as well as his daughter-phone numbers went to voice message. I relayed this to the patient.
After extensive discussion with him we have decided to hold off on more aggressive care unless there is decompensation.
Continue with awake overnight monitor.
Currently he appears very comfortable, able to speak in full sentences. In no distress.
Catheter directed thrombolysis may be of benefit. Will discuss with interventional radiology.
-
Formal echocardiogram pending
Lower extremity Dopplers pending, if there is large DVT may need to reconsider thrombolytics.
Trend troponins
Continue to monitor closely, if there is hypotension, increase oxygen requirements, worsening tachycardia than may need to consider thrombolytics plus or minus catheter directed thrombectomy. I personally discussed this with Dr. Gaspar. Patient
is leaning more towards conservative management unless he decompensates. This will be an ongoing discussion.
Patient's somewhat reluctant to go on long-term anticoagulation but I explained that he will require probably 6 months to lifelong.
-
Will continue to follow closely with you.
I will try to reach out to family again later today.

Imaging reviewed:
CT angiogram 06/24/2024:
findings are seen compatible with bilateral moderate volume pulmonary embolism including small central saddle type pulmonary embolism, as detailed above.
No gross CT findings to suggest significant right heart strain.
Cholelithiasis.
-
EKG: Normal sinus rhythm. Nonspecific T wave abnormality. Prolonged QT. Abnormal EKG. Stable compared to June 2024
[2024-06-25 10:25] LABS: Urine Red Blood Cell 0-2 /HPF (0-2)
[2024-06-25 10:26] LABS: Urine White Cell 0-2 /HPF (0-5)
[2024-06-25] MEDS: DETROL PO (11:01)
[2024-06-25 12:44] LABS: NT-proBNP 2900 pg/ml
[2024-06-25] MEDS: HEPARIN 25000 UNITS/250 ML IV (14:04)
--- NOTE | 2024-06-25 17:01 | CM ---
golf sales manager reviewed patient's chart and met with patient and patient lives with his spouse in a 2 story home, patient is independent with adl's and ambulation, no dme, patient drives.
Pharmacy: [facility] in [place]
PCP: Dr. Marie
Plan; Home with spouse when stable.
[2024-06-25 19:04] LABS: APTT 111.6 Sec (23.4-35.0)
[2024-06-25] MEDS: NON-FORMULARY ITEM 1 UNIT PO (21:42)
[2024-06-25] MEDS: DETROL 2 MG PO (21:42)
[2024-06-25] MEDS: XALATAN OPHTHALMIC SOLUTION 1 DROP BOTH EYES (21:43)
[2024-06-26] VITALS (7 sets, daily range): BP systolic 100–136; BP diastolic 63–81; O2SAT 97
[2024-06-26 02:00] LABS: APTT 105.4 Sec (23.4-35.0)
[2024-06-26] MEDS: SYNTHROID 50 MCG PO (06:02)
[2024-06-26 07:29] LABS: Hematocrit 43.5 % (39.0-52.0); Hemoglobin 15.1 g/dL (13.0-18.0); Mean Corp Hgb Conc. 34.7 g/dL (33.0-37.0); Mean Corpuscular Hgb 31.6 pg (27.0-31.0); Mean Platelet Volume 9.1 fL (7.4-10.4); Platelet Count 184 10^3/uL (130-400); Red Blood Cell Count 4.78 10^6/uL (4.70-6.10); Red Cell Dist. Width 11.9 % (11.5-14.5); White Blood Cell Count 7.2 10^3/uL (4.8-10.8)
[2024-06-26 08:04] LABS: APTT 70.4 Sec (23.4-35.0)
[2024-06-26] MEDS: HEPARIN 4000 UNITS IV (08:30)
[2024-06-26] MEDS: SINEMET 25-100 1.5 TABLET PO ×3 (08:39→20:36)
[2024-06-26] MEDS: PROTONIX 40 MG PO (08:41)
[2024-06-26] MEDS: ZYRTEC 10 MG PO (08:41)
[2024-06-26] MEDS: DETROL 2 MG PO ×2 (08:41→20:36)
[2024-06-26] MEDS: NORVASC 10 MG PO (08:41)
--- NOTE | 2024-06-26 09:54 | W.PN.CD ---
Today's Communication / Plan
-
- Acute non-ischemic myocardial injury - in the setting of acute PE with RV strain on echo.
- Troponin trended to peak (0.032, 2.130, 2.860, 1.550).
- On IV Heparin drip--management as per primary team/Pulmonary; change to NOAC when deemed appropriate.
- No further cardiac recommendations at this time; outpatient follow-up with Cardiology.
Impression / Plan
-
Acute non-ischemic myocardial injury - in the setting of acute PE with RV strain on echo.
- Troponin trended to peak (0.032, 2.130, 2.860, 1.550).
- Denies any chest pain or SOB this am.
- Echo done yesterday--shows RV strain, moderate PHTN, with normal LVEF.
PE - acute.
- On IV Heparin drip--management as per primary team/Pulmonary; change to NOAC when deemed appropriate.
HTN - BP stable.
-Continue current medications.
Parkinson's - chronic.
- continue meds.
BPH - stable on Proscar, continue.
Physical Exam
Vital Signs/Labs
Vital Signs
Temp Pulse Resp BP Pulse Ox
98.0 F 60 16 104/67 96
06/26/24 07:30 06/26/24 07:30 06/26/24 07:30 06/26/24 07:30 06/26/24 07:30
06/25/24 06/26/24 06/27/24
06:59 06:59 06:59
Actual Weight 100.9 kg
06/26/24 06:33
06/24/24 20:09
PT 14.8 Sec (11.4-14.6) H 06/25/24 04:30
INR 1.16 06/25/24 04:30
APTT 70.4 Sec (23.4-35.0) H 06/26/24 06:33
TSH 1.11 uIU/ml (0.47-4.68) 06/25/24 06:31
06/25/24
11:24
Vfj-Y-Lnemtrfbdct Pept 2900
LAB Results
06/24/24 06/25/24 06/25/24
20:09 00:53 06:31
Troponin I 0.032 2.130 H* D 2.860 H* D
06/25/24
13:25
Troponin I 1.550 H* D
Physical Exam
Constitutional: No acute distress and Comfortable
EENT: Anicteric
Cardiovascular: Rhythm & rate is regular, Pedal edema is absent, Systolic murmur absent and S1S2 is normal
Respiratory: Respiratory effort normal and Lungs clear to auscul.
GI: Soft and Non tender
Neuro/Psych: AO x 3
Other: Skin (Warm, dry, intact)
Data Reviewed
-
Date of Service: June 26, 2024
EKG: Tracing Personally Visualized and interpreted (Telemetry: Sinus rhythm)
Echo: Tracing Personally Visualized and interpreted (Normal LVEF; RV strain)
Labs: Labs Reviewed by me
[2024-06-26] MEDS: HEPARIN 25000 UNITS/250 ML IV (10:10)
--- NOTE | 2024-06-26 12:07 | W.PN.PUL3 ---
Today's Communication / Plan
-
Cont. Heparin gtt for additional 24-48hr
Follow PTT
Telemetry
monitor for bleeding.
Assessment
-
74-year-old man with past medical history noted, admitted to the hospital after found unresponsive. Found to be mildly hypoxemic in the emergency room, hypertensive. Evaluation including a CT angiogram of the chest demonstrated moderate clot
burden pulmonary embolism. Developed positive troponins. We were consulted for evaluation of this.
Acute submassive pulmonary embolism-presented with syncopal episode. Initial symptoms started about 2 weeks ago.
Mild hypoxemic respiratory insufficiency 2 L nasal cannula
Positive troponins
Echocardiogram: Preliminary per cardiology note showed moderate pulmonary hypertension/RV strain. Normal LVEF. Official report pending.
History of lightheadedness
Conditions present prior admission:
Hypertension
Parkinson disease
BPH
History of lightheadedness ongoing evaluation in the outpatient setting
History of Wenckebach-Holter monitor recently without pauses.
Assessment and plan:
Acute blood loss from acute pulmonary embolism with saddle component. New RV dysfunction on echocardiogram.
Suspect acute component occurred about 2 weeks ago when he noted more of his chronic symptoms including shortness of breath and lightheadedness.
Patient reports being mainly sedentary, working on his computer. Denies leg edema.
Reports blepharoplasty 3 weeks ago and since then more sedentary, usually very active at home.
-
PESI score 113-intermediate to high risk.
Increased troponins., trending lower
Syncopal episode at home.
Mild hypoxemia- now resolved.
Mild sinus tachycardia - now resolved.
not in distress on exam.
-
Intermediate to high risk pulmonary embolism. Submassive. Patient is not hypotensive. Not requiring increased amount of oxygen.
Hemodynamically stable.
ECHO noted with RV dysfunction and pulmonary HTN, new compared to prior.
-
Continue heparin drip. Follow PTT. Will continue full anticoagulation with IV heparin for at least 48 to 72 hours. May considre NOAC Saturday or Saturday depending on clinical situation.
-
Dr. Leroy discussed with patient and risk and benefit of thrombolysis, patient is in my opinion borderline at 74 years old with history of Parkinson disease for risk of intracranial bleed.
Extensive discussion with him, and daughter at bedside on 06/25/2024 - we have decided to hold off on more aggressive care unless there is decompensation.
Continue with personnel generalist manager.
-
Currently he appears very comfortable, able to speak in full sentences. In no distress.
I also discussed with Dr. Gaspar from IR.
-
Lower extremity Dopplers - showed distal DVT on LLE.
-
Continue to monitor closely, if there is hypotension, increase oxygen requirements, worsening tachycardia than may need to consider thrombolytics plus or minus catheter directed embolectomy.
Patient is leaning more towards conservative management unless he decompensates.
Patient's somewhat reluctant to go on long-term anticoagulation but I explained that he will require probably 6 months to lifelong.
-
Will follow.

Imaging reviewed:
CT angiogram 06/24/2024:
findings are seen compatible with bilateral moderate volume pulmonary embolism including small central saddle type pulmonary embolism, as detailed above.
No gross CT findings to suggest significant right heart strain.
Cholelithiasis.
-
EKG: Normal sinus rhythm. Nonspecific T wave abnormality. Prolonged QT. Abnormal EKG. Stable compared to June 2024
Subjective Data
-
Date of Service:
Date of Service: June 26, 2024
Chief Complaint: Pulmonary Follow Up (Submasive pulmonary embolism.)
Subjective:
No complaints at rest.
Hemodynamically stable.
Review of Systems
Cardiopulmonary: Dyspnea (none at rest) and Chest Pain (n)
GI: Abdominal Pain (n)
Objective Data
Data Reviewed
Vital Signs / I&O / Oxygen:
Vital Signs
Temp Pulse Resp BP Pulse Ox
98.0 F 60 16 104/67 96
06/26/24 07:30 06/26/24 07:30 06/26/24 07:30 06/26/24 07:30 06/26/24 07:30
Intake and Output
06/25/24 06/26/24 06/27/24
06:59 06:59 06:59
Intake Total 420 / 420 420 / 420
Balance 420 / 420 420 / 420
SaO2 96
Nasal Cannula flow liters per 1
minute
Physical Exam
General: Comfortable
HEENT: Normocephalic
Cardiovascular: S1-S2 and Regular Rhythm
Respiratory: Clear and Non-Labored Respirations
GI: Soft and Non Distended
Neurology: Awake and No Motor Deficits
Skin: Warm
Labs/Micro/Reports
Lab Data
06/26/24 06:33
06/24/24 20:09
Laboratory Results
06/25/24 06/25/24 06/26/24
18:43 01:25
APTT 106.0 H 111.6 H 105.4 H
06/26/24
06:33
APTT 70.4 H
--- NOTE | 2024-06-26 12:09 | CM ---
Chart reviewed and plan is to home no needs when stable.
Plan; Home with spouse no needs.
--- NOTE | 2024-06-26 12:11 | W.PN.HOSP.TC ---
Addendum entered and electronically signed by Mu Barrow MD 06/29/24 09:13:
pe without cor pulmonale
Original Note:
Today's Communication/Plan
-
pulm rec conitnue hep gtt for ADDITIONAL 24-48HRS then swotch to [facility]
Assessment / Plan
Assessment / Plan
Imaging
CONCLUSIONS
Normal left ventricular size, wall thickness and systolic function. Estimated
LVEF 55-60%.
Enlarged right ventricular size. Mildly reduced right ventricular systolic
function.
Septal flattening in systole consistent with RV pressure overload.
Moderate tricuspid regurgitation. Moderately elevated PASP. Estimated
pulmonary artery pressure of 51 mmHg. Assuming a right atrial pressure of 8
mmHg.
Compared to 08/13/23: RV dilation/dysfunction is now present. TR has progressed
from mild to moderate, and PASP has increased to 31 mmHg to 51 mmHg.
Physical exam
NAD, resting comfortably in bed
Scleral anicteric
Moist mucous membranes
No JVD
CTA bilateral
Normal S1-S2 no murmurs
Soft nontender nondistended bowel sounds active
No peripheral pitting edema
Moves extremities spontaneously, resting tremor
AAOx3
Assessment and Plan
Acute PE,submassive, unprovoked, on hep gtt, pesi 113
-need anticoag for at least 6 months if not indefinitely
-2d echo as above
-pulm and id consult for ?thrombectomy
-hep gtt
-follow protocol for PE
-npo
-need outpatient hem follow up for hypercoag work up/malignancy work up.
nstemi
-related to submassive per cards
-cards following
-monitor on tele
tachycardia
-physiologic in the setting of acute PE
hyperglycemia
-check a1c
-currently npo
-will order accucheck
-will hold off on starting insulin
htn
-continue antihyerptensive
-would not be aggressive with bp at this time as he is preload dependent
hypothyroidism
-continue levothroxine
hld
-continue statin
Anticipated Discharge: 24 - 48 hours
Subjective/Interval History
-
Date of Service: June 26, 2024
seen and examined
no new comaplitns
no acute overnigght events
Objective Data
-
Labs:
Laboratory Results
06/26/24 06/26/24 06/26/24
01:25 06:33 14:30
WBC 7.2
Hgb 15.1
Hct 43.5
Plt Count 184
APTT 105.4 H 70.4 H Pending
Vital Signs:
Vital Signs
Temp Pulse Resp BP Pulse Ox
98.0 F 60 16 104/67 96
06/26/24 07:30 06/26/24 07:30 06/26/24 07:30 06/26/24 07:30 06/26/24 07:30
I&O
06/25/24 06/26/24 06/27/24
06:59 06:59 06:59
Intake Total 420 / 420 420 / 420
Balance 420 / 420 420 / 420
[2024-06-26 13:10] LABS: Glycohemoglobin (HgbA1c) 5.4 % (4.0-5.6)
[2024-06-26 15:26] LABS: APTT 48.6 Sec (23.4-35.0)
[2024-06-26] MEDS: HEPARIN 8100 UNITS IV (15:34)
--- NOTE | 2024-06-26 19:41 | PN.CDI ---
CDI
- -
CDI:
Physician Documentation Request
Admit Date: 06/24/24 22:30
Dear Doctor Danial,
Patient admitted for pulmonary edema.
H&P: 'PE -bilateral pulmonary emboli, small saddle embolus'
06/25 Echo Report: 'Enlarged right ventricular size. Mildly reduced right ventricular systolic function. Septal flattening in systole consistent with RV pressure overload....Compared to 08/13/23: RV dilation/dysfunction is now present.'
Based on the above, could you clarify in the progress notes, the appropriate diagnosis, if significant, that supports the above abnormalities and additional evaluation, monitoring and/or treatment rendered:
Pulmonary embolism with acute cor pulmonale
Pulmonary embolism without acute cor pulmonale
Other
Use of terms such as suspected, likely, concern for, or probable (associated with a specific diagnosis that is being evaluated, monitored, or treated as if it exists) are acceptable and can be coded in the inpatient setting, when documented at the
time of discharge.
Thank you,
Kala Catalan RN, BSN
CDI Specialist
Available via [place] text
Please use your independent medical judgment in providing your response.
[2024-06-26] MEDS: XALATAN OPHTHALMIC SOLUTION 1 DROP BOTH EYES (20:37)
[2024-06-26] MEDS: LIPITOR 10 MG PO (20:39)
[2024-06-26] MEDS: NON-FORMULARY ITEM 1 UNIT PO (20:40)
[2024-06-26 23:24] LABS: APTT > 200 Sec (23.4-35.0)
[2024-06-27] MEDS: HEPARIN 25000 UNITS/250 ML IV (04:39)
[2024-06-27] MEDS: SYNTHROID 50 MCG PO (05:44)
[2024-06-27 07:22] LABS: APTT 86.9 Sec (23.4-35.0)
[2024-06-27 07:53] VITALS: BP 119/72
[2024-06-27] MEDS: SINEMET 25-100 1.5 TABLET PO ×2 (09:03→15:59)
[2024-06-27] MEDS: DETROL 2 MG PO (09:04)
[2024-06-27] MEDS: PROTONIX 40 MG PO (09:05)
[2024-06-27] MEDS: ZYRTEC 10 MG PO (09:05)
[2024-06-27] MEDS: NORVASC 10 MG PO (09:05)
[2024-06-27 11:38] VITALS: BP 121/72
[2024-06-27 12:39] LABS: APTT 84.2 Sec (23.4-35.0)
--- NOTE | 2024-06-27 12:43 | W.PN.PUL3 ---
Today's Communication / Plan
-
Remains on IV heparin, otherwise stable on RA
Can transition to OAC once covered options available
Discussed treatment course, outpatient FU for follow up testing
Discharge planning once transitioned
Assessment
-
74-year-old man with past medical history noted, admitted to the hospital after found unresponsive. Found to be mildly hypoxemic in the emergency room, hypertensive. Evaluation including a CT angiogram of the chest demonstrated moderate clot
burden pulmonary embolism. Developed positive troponins. We were consulted for evaluation of this.
Acute submassive pulmonary embolism-presented with syncopal episode. Initial symptoms started about 2 weeks ago.
Mild hypoxemic respiratory insufficiency 2 L nasal cannula
Positive troponins
Echocardiogram: Preliminary per cardiology note showed moderate pulmonary hypertension/RV strain. Normal LVEF. Official report pending.
History of lightheadedness
Conditions present prior admission:
Hypertension
Parkinson disease
BPH
History of lightheadedness ongoing evaluation in the outpatient setting
History of Wenckebach-Holter monitor recently without pauses.
Plan:
Acute blood loss from acute pulmonary embolism with saddle component. New RV dysfunction on echocardiogram.
Suspect acute component occurred about 2 weeks ago when he noted more of his chronic symptoms including shortness of breath and lightheadedness.
Patient reports being mainly sedentary, working on his computer. Denies leg edema.
Reports blepharoplasty 3 weeks ago and since then more sedentary, usually very active at home.
-
PESI score 113-intermediate to high risk.
Increased troponins., trending lower
Syncopal episode at home.
Mild hypoxemia- now resolved.
Mild sinus tachycardia - now resolved.
Stable on RA, not in distress on exam.
-
Intermediate to high risk pulmonary embolism. Submassive. Patient is not hypotensive. Not requiring increased amount of oxygen.
Hemodynamically stable.
ECHO noted with RV dysfunction and pulmonary HTN, new compared to prior.
-
Continue heparin drip. Follow PTT. Will continue full anticoagulation with IV heparin for at least 48 to 72 hours.
Transition to OAC once CM has given covered options
-
Dr. Leroy discussed with patient and risk and benefit of thrombolysis, patient is in my opinion borderline at 74 years old with history of Parkinson disease for risk of intracranial bleed.
Extensive discussion with him, and daughter at bedside on 06/25/2024 - we have decided to hold off on more aggressive care unless there is decompensation.
Continue with youth nutritional monitor.
-
Currently he appears very comfortable, able to speak in full sentences. In no distress.
I also discussed with Dr. Gaspar from IR.
-
Lower extremity Dopplers - showed distal DVT on LLE.
-
Continue to monitor closely, if there is hypotension, increase oxygen requirements, worsening tachycardia than may need to consider thrombolytics plus or minus catheter directed embolectomy.
Patient is leaning more towards conservative management unless he decompensates.
Patient's somewhat reluctant to go on long-term anticoagulation but I explained that he will require probably 6 months to lifelong.

Imaging reviewed:
CT angiogram 06/24/2024: findings are seen compatible with bilateral moderate volume pulmonary embolism including small central saddle type pulmonary embolism, as detailed above.
No gross CT findings to suggest significant right heart strain. Cholelithiasis.
-
EKG: Normal sinus rhythm. Nonspecific T wave abnormality. Prolonged QT. Abnormal EKG. Stable compared to June 2024
ECHO 06/25/24-Normal left ventricular size, wall thickness and systolic function. Estimated LVEF 55-60%. Enlarged right ventricular size. Mildly reduced right ventricular systolic function. Septal flattening in systole consistent with RV pressure
overload. Moderate tricuspid regurgitation. Moderately elevated PASP. Estimated pulmonary artery pressure of 51 mmHg. Assuming a right atrial pressure of 8 mmHg. Compared to 08/13/23: RV dilation/dysfunction is now present. TR has progressed
from mild to moderate, and PASP has increased to 31 mmHg to 51 mmHg.
Subjective Data
-
Date of Service:
Date of Service: June 27, 2024
Chief Complaint: Pulmonary Follow Up (Submasive pulmonary embolism.)
Subjective:
No new events ON, stable on RA
on IV heparin, son at bedside
No new complaints
Objective Data
Data Reviewed
Vital Signs / I&O / Oxygen:
Vital Signs
Temp Pulse Resp BP Pulse Ox
98 F 58 16 121/72 97
06/27/24 11:38 06/27/24 07:53 06/27/24 07:53 06/27/24 11:38 06/27/24 07:53
Intake and Output
06/26/24 06/27/24 06/28/24
06:59 06:59 06:59
Intake Total 420 / 420 1140 / 1140
Balance 420 / 420 1140 / 1140
SaO2 97
Nasal Cannula flow liters per 1
minute
Physical Exam
General: Comfortable and Good Appetite
HEENT: Normocephalic, Anicteric and Moist Mucous Membranes
Cardiovascular: S1-S2 and Regular Rhythm
Respiratory: Clear and Non-Labored Respirations
GI: Soft and Non Distended
Neurology: Awake, Alert, Oriented and No Motor Deficits
Skin: Warm, Dry and Good Color
Labs/Micro/Reports
Lab Data
06/26/24 06:33
06/24/24 20:09
Laboratory Results
06/26/24 06/26/24 06/27/24
15:08 22:44 06:29
APTT 48.6 H > 200 H* 86.9 H
--- NOTE | 2024-06-27 14:47 | W.PN.HOSP.TC ---
Today's Communication/Plan
-
DC
Assessment / Plan
Assessment / Plan
Imaging
CONCLUSIONS
Normal left ventricular size, wall thickness and systolic function. Estimated
LVEF 55-60%.
Enlarged right ventricular size. Mildly reduced right ventricular systolic
function.
Septal flattening in systole consistent with RV pressure overload.
Moderate tricuspid regurgitation. Moderately elevated PASP. Estimated
pulmonary artery pressure of 51 mmHg. Assuming a right atrial pressure of 8
mmHg.
Compared to 08/13/23: RV dilation/dysfunction is now present. TR has progressed
from mild to moderate, and PASP has increased to 31 mmHg to 51 mmHg.
Assessment and Plan
Acute PE,submassive, unprovoked, on hep gtt, pesi 113
-need anticoag for at least 6 months if not indefinitely
-2d echo as above
-pulm following
-hep gtt -transition into PO eliquis
-follow protocol for PE
-need outpatient hem follow up for hypercoag work up/malignancy work up.
nstemi
-related to submassive per cards
-cards following
-monitor on tele
- No CP
- No CHF
hyperglycemia
-HbA1c 5.4
htn
-continue antihyerptensive
- BP under goal
hypothyroidism
-continue levothroxine
hld
-continue statin
- With clinical stability we will make patient walk and check for ambulatory pulse ox and if okay will transition into p.o. Eliquis starting tonight. Case management to check into the cost of Eliquis. If not prohibitive and no need for oxygen
will discharge later this evening.
dw family at bedside as well
Pt lives with family.
Total time of dc 32 min
Anticipated Discharge: Today
Subjective/Interval History
-
Date of Service: June 27, 2024
patient feeling fine. Denies any shortness of breath or chest pain.
No dizziness. Ambulating without any symptoms. On room air at rest.
Objective Data
-
Labs:
Laboratory Results
06/27/24 06/27/24
06:29 12:07
APTT 86.9 H 84.2 H
Vital Signs:
Vital Signs
Temp Pulse Resp BP Pulse Ox
98 F 58 16 121/72 97
06/27/24 11:38 06/27/24 07:53 06/27/24 07:53 06/27/24 11:38 06/27/24 07:53
I&O
06/26/24 06/27/24 06/28/24
06:59 06:59 06:59
Intake Total 420 / 420 1140 / 1140
Balance 420 / 420 1140 / 1140
Review of Systems
-
Abdomen/GI: Denies Abdominal Pain, Nausea or Vomiting
Neuro: Denies Dizzy
Physical Exam
-
General: Comfortable
Respiratory: Clear to Auscultation and Non Labored Respirations; Negative Accessory Resp Muscle Use
Cardiac: Regular Rhythm and S1/S2; Negative Tachycardic
Neuro: AO x 3
Psych: Calm; Negative Confused
Data Reviewed
-
Labs: Labs Reviewed by me
[2024-06-27 15:00] VITALS: BP 114/64
[2024-06-27] MEDS: ELIQUIS 10 MG PO (18:06)
--- NOTE | 2024-06-28 16:55 | W.DCSUMMARY ---
Addendum entered and electronically signed by Bryce Fuentes MD 06/28/24 17:05:
Date of discharge correction-06/27/2024
Original Note:
Discharge Summary
Discharge Data
Date of Admission: 06/24/24
Date of Discharge: 06/28/24
-
Pending Results: No
Hospital Course
Primary diagnosis:
Acute submassive pulmonary embolism . Unprovoked. Associated right ventricular strain.
Acute left leg deep vein thrombosis
Non ischemic myocardial injury secondary to secondary to pulmonary embolism.
Secondary diagnosis:
Hypertension
Hypothyroidism
Hyperlipidemia
Parkinson's disease.
Hospital course:
Patient was experienced a weeks of worsening lightheadedness with episodes of syncope 2 weeks prior. He had lightheadedness several weeks prior to that. Was getting investigated with a Holter monitor which was negative. Then he started to
complain shortness of breath. He had a recent issue with uncontrolled hypertension needing to be placed on amlodipine. Despite all this he was still lightheaded and he had another syncopal event which brought him to the hospital. He had a CT head
and CT angiogram of the head and neck which was negative for acute stroke but did raise the possibility of PE so a dedicated CT chest angiogram was performed which showed bilateral moderate volume PE with small saddle emboli. There was no right
ventricular strain noted on the CT. Echo showed right ventricular strain. He was seen hemodynamically stable. He did not require oxygen. He was admitted to hospital for IV heparin treatments for 72 hours.
He had an ultrasound of the leg which showed left leg DVT.
It seemed an unprovoked thromboembolic event. Advice was to continue with Eliquis and follow repeat echocardiogram as an outpatient to follow on the elevated pulmonary pressures and right ventricular dysfunction. He had home O2 evaluation which
showed no need for home O2.
He also had a nonischemic myocardial injury secondary to DE. Was seen by cardiology.
Consultants on board:
Cardiology-Jason Alexander
Pulmonary-Dr. Del Toro, manual
Discharge Plan
-
Patient Disposition: Home (Routine Discharge)
Discharge Diagnosis/Procedures: PE with right heart strain with left leg DVT
Diet: Low Cholesterol
Activity: As tolerated
Driving Restrictions: Not until seen by your Dr
Bathing Restrictions: None
Referrals:
Hyacinth Eduardo CRNP [Specified Professional Personl] - 07/13/24 11:20 am
Stone Del Toro MD [Active] - in one month
UNKNOWN - PT DOES,NOT KNOW [Family Provider] - in less than 1 week (see PCP in less than one week)
Prescriptions:
New
Eliquis 5 mg Tablet
10 mg PO BID Qty: 26 0RF
Rx Instructions:
take two BID next 6 09/24 and then one BID
Eliquis 5 mg tablet
5 mg PO BID Qty: 60 0RF
Rx Instructions:
once done with 10mg dose start taking 5mg dose
Continued
cetirizine [Zyrtec] 10 mg Tablet
10 mg PO DAILY
donepezil 10 mg Tablet
10 mg PO HS
tolterodine 2 mg Tablet
2 mg PO BID
amlodipine 10 mg Tablet
10 mg PO DAILY
levothyroxine 50 mcg Tablet
50 mcg PO DAILY
simvastatin 20 mg Tablet
20 mg PO HS
azelastine 137 mcg (0.1 %) [place],Non-Aerosol
1 spray INTRANASAL DAILY
trihexyphenidyl 2 mg Tablet
PO
Patient Comments:
06/24/24: This is a new medication, family unsure of how the patient currently takes this.
carbidopa-levodopa 25-100 mg Tablet
1.5 tab PO TID
coenzyme Q10 [CoQ-10] 100 mg Capsule
100 mg PO DAILY
Visbiome 112.5 billion cell Capsule
1 cap PO DAILY
omega-3 fatty acids-fish oil 684-1,200 mg Capsule,Delayed Release(Dr/Ec)
1 cap PO DAILY
ropinirole 6 mg Tablet Extended Release 24 Hr
6 mg PO HS
Glucosamine Chondroitin 550-30-1 mg Capsule
1 cap PO DAILY
latanoprost (PF) 0.005 % [place]
1 drp BOTH EYES HS
Neugenix Pm capsule
1 cap PO HS
magnesium L-threonate 48 mg magnesium (667 mg) Capsule
48 mg PO DAILY
Liver Renew capsule
1 cap PO DAILY
Ultra Prostate Formula capsule
1 cap PO DAILY
Discharge Orders:
Discharge Patient (As Directed); Ordered 06/27/24
Ordered By: Bryce Fuentes
Discharge Date and Time
Discharge Date/Time: 06/27/24 18:39
Print Language: [place]
== END 2024-06-27 18:39 | disposition home or self-care (01) | DRG 176 ==
LOC: 4 WEST ACU 22:30
PROVIDERS: Hospitalist; ADMITTING PHYSICIAN Internal Medicine; ATTENDING PHYSICIAN Internal Medicine; CONSULT PHYSICIAN Internal Medicine Cardiovascular Disease; CONSULT PHYSICIAN Internal Medicine Critical Care Medicine; EMERGENCY PHYSICIAN Emergency Medicine
DX: I26.92 Saddle embolus of pulmonary artery without acute cor pulmonale (principal); I82.402 Acute embolism and thrombosis of unspecified deep veins of left lower extremity; I5A Non-ischemic myocardial injury (non-traumatic); I10 Essential (primary) hypertension; E03.9 Hypothyroidism, unspecified; G20.A1 Parkinson's disease without dyskinesia, without mention of fluctuations; E78.00 Pure hypercholesterolemia, unspecified
CPT/HCPCS: 70450; 70496; 70498; 71275; 80053; 81003; 81015; 82607; 82962; 83036; 83880; 84443; 84484; 85025; 85027; 85610; 85730; 86850; 86900; 86901; 93005; 93306; 93970; 96365; 96366; 97162; 99291; Q9950; Q9967

== ENCOUNTER → 2024-10-06 13:24 | Outpatient (REF) | payer MEDICARE, OTHER, SELFPAY | LOC: RAD 13:24 | PROVIDERS: ATTENDING PHYSICIAN Nurse Practitioner Adult Health; FAMILY PHYSICIAN Internal Medicine | DX: I82.402 Acute embolism and thrombosis of unspecified deep veins of left lower extremity (principal); I27.20 Pulmonary hypertension, unspecified; I26.92 Saddle embolus of pulmonary artery without acute cor pulmonale | CPT/HCPCS: 71275; 93306; 93970; Q9967 ==

== ENCOUNTER 2024-10-07 11:39 | Outpatient (RCR) | payer MEDICARE, OTHER, SELFPAY | END 2024-10-07 23:59 | disposition home or self-care (01) | LOC: RST 11:39 | PROVIDERS: ATTENDING PHYSICIAN Nurse Practitioner Adult Health; FAMILY PHYSICIAN Family Medicine | DX: G20.A1 Parkinson's disease without dyskinesia, without mention of fluctuations (principal); R49.8 Other voice and resonance disorders; R47.1 Dysarthria and anarthria; R49.0 Dysphonia | CPT/HCPCS: 92524 ==

== ENCOUNTER → 2024-10-16 08:12 | Outpatient (REF) | payer MEDICARE, OTHER, SELFPAY | LOC: RCS 08:12 | PROVIDERS: ATTENDING PHYSICIAN Internal Medicine Cardiovascular Disease; FAMILY PHYSICIAN Internal Medicine | DX: I44.1 Atrioventricular block, second degree (principal); R42 Dizziness and giddiness | CPT/HCPCS: 93225; 93226 ==

== ENCOUNTER → 2024-11-09 07:55 | Outpatient (REF) | payer MEDICARE, OTHER, SELFPAY | LOC: HWRAD 07:55 | PROVIDERS: ATTENDING PHYSICIAN Internal Medicine Endocrinology, Diabetes & Metabolism; FAMILY PHYSICIAN Internal Medicine | DX: E04.2 Nontoxic multinodular goiter (principal) | CPT/HCPCS: 76536 ==

== ENCOUNTER 2024-11-19 14:53 | Outpatient (RCR) | payer MEDICARE, OTHER, SELFPAY | END 2024-11-20 05:42 | disposition home or self-care (01) | LOC: RST 14:53 | PROVIDERS: ATTENDING PHYSICIAN Nurse Practitioner Adult Health; FAMILY PHYSICIAN Family Medicine | DX: G20.A1 Parkinson's disease without dyskinesia, without mention of fluctuations; R49.8 Other voice and resonance disorders; R47.1 Dysarthria and anarthria; R49.0 Dysphonia | CPT/HCPCS: 92507 ==

== ENCOUNTER → 2024-11-25 09:19 | Outpatient (REF) | payer MEDICARE, OTHER, SELFPAY | LOC: RAD 09:19 | PROVIDERS: ATTENDING PHYSICIAN Internal Medicine Critical Care Medicine; FAMILY PHYSICIAN Internal Medicine | DX: I82.409 Acute embolism and thrombosis of unspecified deep veins of unspecified lower extremity (principal); I26.99 Other pulmonary embolism without acute cor pulmonale | CPT/HCPCS: 93970 ==

== ENCOUNTER → 2024-12-10 07:41 | Outpatient (REF) | payer MEDICARE, OTHER, SELFPAY ==
[2024-12-10 09:15] LABS: D-Dimer < 0.27 ug/mlFEU (0.00-0.50)
[2024-12-11 18:26] LABS: Cardiolipin IgA Antibody <10 APL (<=11); Cardiolipin IgM Antibody <10 MPL (<=12); Cardiolipin Igg Antibody <10 GPL (<=14)
[2024-12-11 21:12] LABS: Anti-Thrombin III Activity 123 % (76-128)
[2024-12-12 01:28] LABS: Beta-2-Glycoprotein I Ab. IgA <10 SAU (<=20)
[2024-12-12 15:49] LABS: Protein S Free Antigen 126 % (74-147)
[2024-12-12 16:18] LABS: Anti-Xa Qualitative Interp Not Performed (Not Present); Anticoagulant Med Neutralizati Not Performed (Not Performed); Hexagonal Phospholipid Confirm Not Performed s (<=7.9); Neutralized PTT-LA Ratio Not Performed (<=1.20); Neutralized dRVTT Screen Ratio Not Performed (<=1.20); PTT-LA Ratio 0.95 (<=1.20); Prothrombin Time 13.9 s (12.0-15.5); Thrombin Time Not Performed s (<=19.5); dRVTT 1.1 Mix Ratio Not Performed (<=1.20); dRVTT Confirmation Ratio Not Performed (<=1.20); dRVTT Screen Ratio 1.16 (<=1.20)
== END ==
LOC: REG 07:41
PROVIDERS: ATTENDING PHYSICIAN Internal Medicine Hematology & Oncology; FAMILY PHYSICIAN Internal Medicine
DX: I26.09 Other pulmonary embolism with acute cor pulmonale (principal); I26.92 Saddle embolus of pulmonary artery without acute cor pulmonale
CPT/HCPCS: 36415; 81240; 81241; 85300; 85306; 85379; 85610; 85613; 85730; 86146; 86147

== ENCOUNTER → 2024-12-24 08:49 | Outpatient (REF) | payer MEDICARE, OTHER, SELFPAY | LOC: RCS 08:49 | PROVIDERS: ATTENDING PHYSICIAN Internal Medicine Cardiovascular Disease; FAMILY PHYSICIAN Internal Medicine | DX: I44.1 Atrioventricular block, second degree (principal); I10 Essential (primary) hypertension; Z86.711 Personal history of pulmonary embolism | CPT/HCPCS: 93308; 93321; 93325 ==

== ENCOUNTER → 2025-02-04 06:29 | Outpatient (REF) | payer MEDICARE, OTHER, SELFPAY ==
[2025-02-06 02:33] LABS: Beta-2-Glycoprotein I Ab. IgG <10 SGU (<=20); Beta-2-Glycoprotein I Ab. IgM <10 SMU (<=20)
== END ==
LOC: RAD 06:29
PROVIDERS: ATTENDING PHYSICIAN Internal Medicine Critical Care Medicine; FAMILY PHYSICIAN Internal Medicine; OTHER PHYSICIAN Internal Medicine Hematology & Oncology
DX: I82.409 Acute embolism and thrombosis of unspecified deep veins of unspecified lower extremity (principal); I26.99 Other pulmonary embolism without acute cor pulmonale
CPT/HCPCS: 36415; 86146; 93970

== ENCOUNTER 2025-03-03 14:15 | Outpatient (RCR) | payer MEDICARE, OTHER, SELFPAY | END 2025-03-03 23:59 | disposition home or self-care (01) | LOC: RST 14:15 | PROVIDERS: ATTENDING PHYSICIAN Nurse Practitioner Adult Health; FAMILY PHYSICIAN Family Medicine | DX: G20.A1 Parkinson's disease without dyskinesia, without mention of fluctuations (principal) ==

== ENCOUNTER 2025-04-14 13:58 | Outpatient (RCR) | payer SELFPAY | END 2025-04-14 23:59 | disposition home or self-care (01) | LOC: RST 13:58 | PROVIDERS: ATTENDING PHYSICIAN Nurse Practitioner Adult Health; FAMILY PHYSICIAN Family Medicine | DX: G20.A1 Parkinson's disease without dyskinesia, without mention of fluctuations (principal) ==

== ENCOUNTER 2025-05-26 13:27 | Outpatient (RCR) | payer SELFPAY | END 2025-05-26 23:59 | disposition home or self-care (01) | LOC: RST 13:27 | PROVIDERS: ATTENDING PHYSICIAN Nurse Practitioner Adult Health; FAMILY PHYSICIAN Family Medicine | DX: G20.A1 Parkinson's disease without dyskinesia, without mention of fluctuations (principal) ==

== ENCOUNTER 2025-08-04 06:42 | Outpatient (RCR) | payer SELFPAY | END 2025-08-04 23:59 | disposition home or self-care (01) | LOC: RST 06:42 | PROVIDERS: ATTENDING PHYSICIAN Nurse Practitioner Adult Health | DX: G20.A1 Parkinson's disease without dyskinesia, without mention of fluctuations (principal) ==